=== PATIENT | female | born 1980 | race Two or more races ===

== ENCOUNTER 2022-02-05 13:32 | Emergency (ER) | payer OTHER ==
[~2022-02-05] VITALS: Ht 170.2 cm; Wt 136.1 kg
[2022-02-05] MEDS ORDERED: DICLOFENAC SODI75 MG PO (19:14)
== END 2022-02-05 19:34 | disposition home or self-care (01) ==
LOC: ER 13:32
DX: R10.9 Unspecified abdominal pain (principal); Z88.6 Allergy status to analgesic agent; N70.11 Chronic salpingitis; N28.1 Cyst of kidney, acquired